=== PATIENT | male | born 1975 | race African-American/Black ===

== ENCOUNTER 2019-09-27 23:14 | Emergency (ER) | payer SELFPAY ==
[~2019-09-27] VITALS: Ht 180.3 cm; Wt 96.0 kg
[2019-09-28] MEDS ORDERED: HYDROCODONE/ACETAMINOPHEN 5/325MG TABLET PO ONE (01:45)
[2019-09-28 02:09] VITALS: BP 132/86
== END 2019-09-28 03:37 | disposition home or self-care (01) ==
LOC: ER 23:14
DX: M25.561 Pain in right knee (principal); F17.200 Nicotine dependence, unspecified, uncomplicated; X58.XXXA Exposure to other specified factors, initial encounter; Y93.89 Activity, other specified; Y92.89 Other specified places as the place of occurrence of the external cause; Y99.8 Other external cause status
CPT/HCPCS: 72070; 73562; 99283; Z7610